=== PATIENT | female | born 1975 | race Hispanic/Latino ===

== ENCOUNTER 2018-11-07 12:00 | Day surgery (SDC) | payer BC ==
[2018-11-07] MEDS ORDERED: Ketorolac Tromethamine 30 MG/ML VIAL ONE (12:18)
[2018-11-07] MEDS ORDERED: Scopolamine 1.5 mg/72 hour Patch ONE (12:44)
[2018-11-07] MEDS ORDERED: Bupivacaine/Epinephrine 0.25% 30 ML VIAL ONE (12:50)
[2018-11-07] MEDS ORDERED: Levofloxacin 500 mg/D5W 100 ml Premix Bag ONE (12:50)
[2018-11-07] MEDS ORDERED: Fentanyl 100 MCG/2 ML VIAL ONE ×2 (12:59→14:21)
[2018-11-07] MEDS ORDERED: Midazolam HCl 2 mg/2 ml Vial ONE (12:59)
--- NOTE | 2018-11-07 13:24 | HP ---
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 Ultrasound revealed gallstones. Liver function tests, CBC normal. She is transferred Thursday morning today for laparoscopic cholecystectomy n.p.o. ALLERGIES: NONE. TOBACCO: None. ALCOHOL: None. MEDICATIONS: None routinely. PAST SURGICAL HISTORY: Hysterectomy, appendectomy, hysterectomy without oophorectomy. FAMILY HISTORY: Noncontributory. REVIEW OF SYSTEMS: Noncontributory. PHYSICAL EXAMINATION: VITAL SIGNS: Weight 230 pounds/104 kg, height 168 cm, BMI 36, blood pressure 194/114, temperature 97.9 degrees, respiratory rate 22. HEAD, EYES, EARS, NOSE, AND THROAT: Unremarkable. Sclerae nonicteric. SKIN: Nonjaundiced. LUNGS: Clear to auscultation. CARDIAC: Regular rate and rhythm without murmur or gallop. ABDOMEN: Soft. Tenderness in her right upper quadrant with guarding, rebound. EXTREMITIES: Unremarkable. No ankle edema. Good pedal pulses. NEUROLOGICAL: Intact. LABORATORY DATA: Basic metabolic profile is normal. Hemoglobin 14, hematocrit 43, white count 11. Liver function tests normal. Bilirubin 0.7. Ultrasound, cholelithiasis without biliary ductal dilatation, steatosis of liver, positive sonographic Noyola's, 3-mm bile duct. ASSESSMENT AND PLAN: Acute cholecystitis. We recommend laparoscopic video cholecystectomy after Levaquin, Toradol, Ofirmev. Risks of infection, bleeding, visceral and biliary injury explained. She consents. Job ID: [id number]
[2018-11-07] MEDS ORDERED: Promethazine HCl 25 MG/ML VIAL IM PRN (13:59)
[2018-11-07] MEDS ORDERED: Ondansetron HCl/PF 4 MG/2 ML Vial IVP PRN (13:59)
[2018-11-07] MEDS ORDERED: Promethazine HCl 25 MG/ML VIAL SLOW IVP PRN (13:59)
[2018-11-07] MEDS ORDERED: Ondansetron PF 4 MG/2 ML Vial ONE ×2 (14:36→17:16)
[2018-11-07] MEDS ORDERED: traMADol HCl 50 MG TAB ONE (15:15)
--- NOTE | 2018-11-07 17:03 | OP ---
DATE OF PROCEDURE: 11/07/2018 PREOPERATIVE DIAGNOSES: 1. Acute cholecystitis. 2. Cholelithiasis. 3. Hydrops of the gallbladder. 4. Large stone obstructing the gallbladder. POSTOPERATIVE DIAGNOSES: 1. Acute cholecystitis. 2. Cholelithiasis. 3. Hydrops of the gallbladder. 4. Large stone obstructing the gallbladder. PROCEDURES PERFORMED: 1. Laparoscopic video cholecystectomy. 2. Closure of subxiphoid incision with GraNee Needle, 0 Vicryl [id number] suture. ANESTHESIA: General, local 0.5% Marcaine with epinephrine 30 mL. DESCRIPTION OF PROCEDURE: The patient was taken to the operating room, underwent general anesthesia, abdomen was prepared with ChloraPrep and draped in routine fashion. Local anesthetic was infiltrated in the skin and subcutaneous tissue about each port site, infraumbilical incision was made, pneumoperitoneum to 15 mmHg obtained with a Veress needle, replaced with a 5 port, where a laparoscope inserted. Right subxiphoid incision was made and 11 port placed, right subcostal incision was made, midclavicular entrance line, where the 5 port was placed. The fundus of the gallbladder was thickened, edematous, difficult to grasp, but it was grasped at the cephalad. Liver was fatty, but not cirrhotic. Omental adhesions were taken down with the gallbladder body using cautery for hemostasis. Infundibulum was grasped and reflected laterally. Cystic artery and duct was dissected free. Critical view obtained. Cystic artery and duct double clipped proximally, divided. Gallbladder dissected free from liver bed, obtaining good hemostasis prior to division of the final peritoneal attachments. Gallbladder and contents removed. With some difficulty due to the large stone, requiring, large amount of subxiphoid incision. Good hemostasis ensured with the cautery. Irrigant evacuated. Eden applied to the gallbladder bed. Pneumoperitoneum evacuated. Subxiphoid fascia was approximated with 0 Vicryl GraNee needle and [id number] suture. The pneumoperitoneum evacuated. All instruments were removed all skin incisions were approximated with interrupted subdermal 4-0 Monocryl and Browns glue applied. Job ID: [id number]
[2018-11-07] MEDS ORDERED: Dexamethasone 20 MG/5 ML VIAL ONE (17:16)
[2018-11-07] MEDS ORDERED: Lidocaine 1% PF 5 ML VIAL ONE (17:16)
[2018-11-07] MEDS ORDERED: Rocuronium Bromide 10 MG/ML (10ML VIAL) ONE (17:16)
[2018-11-07] MEDS ORDERED: Glycopyrrolate 0.2 MG/ML 5 ML SYRINGE ONE (17:16)
[2018-11-07] MEDS ORDERED: PROPOFOL 200 MG/20 ML VIAL ONE (17:16)
== END 2018-11-07 17:20 | disposition home or self-care (01) ==
LOC: SDC 12:00
PROVIDERS: ATTEND Specialist
PROC: 0FT44ZZ Resection of Gallbladder, Percutaneous Endoscopic Approach (ICD-10-PCS; principal; 2018-11-07)
DX: K80.12 Calculus of gallbladder with acute and chronic cholecystitis without obstruction (principal); K82.1 Hydrops of gallbladder
CPT/HCPCS: 88304; J0131; J0690; J1100; J1885; J1956; J2001; J2250; J2405; J2704; J3010